=== PATIENT | female | born 1945 | race Caucasian/White ===

== ENCOUNTER 2017-11-08 13:42 | Emergency (ER) | payer MEDICARE, OTHER ==
[~2017-11-08] VITALS: Ht 152.4 cm; Wt 60.0 kg
[~2017-11-08 13:42] MED LIST: AMOXICILLIN500 MG PO; ASPIRIN325 MG PO; FISH OI1; MULTI VIT PO; VITAMI16
[2017-11-08 14:46] LABS: HEMATOCRIT 40.5 % (37.0-47.0); HEMOGLOBIN 14.1 g/dl (12.0-16.0); IMMATURE GRANULOCYTES 0.3 % (0.0-5.0); MEAN CELL VOLUME 95.3 fL CALC (80.0-100.0); MEAN CORPUSCULAR HGB 33.2 pG CALC (26.0-32.0); MEAN CORPUSCULAR HGB CONC 34.8 g/L CALC (32.0-36.0); NEUT# 8.3 thou/uL (2.00-7.15); RED BLOOD COUNT 4.25 mill/uL (4.20-5.60); RED CELL DISTRI WIDTH 12.5 % (11.5-15.5)
[2017-11-08 14:47] LABS: URINE BLOOD DIPSTICK TRACE-INTACT (NEGATIVE); URINE GLUCOSE - DIPSTICK NEGATIVE (NEGATIVE); URINE KETONE TRACE mg/dL (NEGATIVE); URINE LEUK ESTERASE TRACE (NEGATIVE); URINE NITRITE - DIPSTICK NEGATIVE (Negative); URINE PROTEIN - DIPSTICK 30 mg/dL (NEG-TRACE); URINE UROBILINOGEN - DIPSTICK 0.2 E.U./dL (0.2)
[2017-11-08 14:51] LABS: URINE BILIRUBIN - DIPSTICK NEGATIVE (NEGATIVE); URINE CLARITY CLEAR; URINE COLOR DK. YELLOW
[2017-11-08 15:00] LABS: URINE SQUAMOUS EPITHELIAL CELL FEW EPI/hpf (0-FEW)
[2017-11-08 15:02] LABS: ALBUMIN 3.9 g/dL (3.2-5.0); ALKALINE PHOSPHATASE 93 u/l (38-126); ANION GAP 14 (6-22 (CALC)); BILIRUBIN, TOTAL 1.3 mg/dL (0.0-1.4); BUN 17 mg/dL (8-23); BUN/CREATININE RATIO 24 (12-20 (CALC)); CARBON DIOXIDE 22 mmol/l (22-30); CHLORIDE 101 mmol/l (95-108); CREATININE 0.7 mg/dL (0.5-1.0); GFR > 60 ML/MIN (>=60 (CALC)); GFR FOR AFR.AMER. > 60 ML/MIN (>=60 (CALC)); LIPASE 48 u/l (23-300); POTASSIUM 3.9 mmol/l (3.5-5.1); SGOT/AST 20 u/l (9-36); SGPT/ALT 25 u/l (11-66); SODIUM 133 mmol/l (137-146); TOTAL PROTEIN 7.1 g/dL (6.3-8.2)
[2017-11-08 16:10] VITALS: BP 146/84
== END 2017-11-08 16:10 | disposition home or self-care (01) ==
LOC: ED 13:42
PROVIDERS: Family Medicine
DX: R10.13 Epigastric pain (principal); I48.91 Unspecified atrial fibrillation
CPT/HCPCS: Q9967

== ENCOUNTER → 2018-01-13 | Outpatient (REF) | payer MEDICARE, OTHER ==
[2018-01-13 09:17] LABS: HEMATOCRIT 41.7 % (37.0-47.0); HEMOGLOBIN 13.9 g/dl (12.0-16.0); IMMATURE GRANULOCYTES 0.3 % (0.0-5.0); MEAN CELL VOLUME 98.3 fL CALC (80.0-100.0); MEAN CORPUSCULAR HGB 32.8 pG CALC (26.0-32.0); MEAN CORPUSCULAR HGB CONC 33.3 g/L CALC (32.0-36.0); NEUT# 4.25 thou/uL (2.00-7.15); RED BLOOD COUNT 4.24 mill/uL (4.20-5.60); RED CELL DISTRI WIDTH 12.9 % (11.5-15.5)
[2018-01-13 09:19] LABS: ALBUMIN 4.2 g/dL (3.2-5.0); ALKALINE PHOSPHATASE 81 u/l (38-126); BILIRUBIN, TOTAL 0.5 mg/dL (0.0-1.4); BUN 13 mg/dL (8-23); BUN/CREATININE RATIO 19 (12-20 (CALC)); CALCULATED LDLCHOLESTEROL 92 mg/dL (62-129 (CALC)); CARBON DIOXIDE 26 mmol/l (22-30); CHLORIDE 107 mmol/l (95-108); CHOLESTEROL HDL RATIO 3.3 (<4.4 (CALC)); CREATININE 0.7 mg/dL (0.5-1.0); GFR > 60 ML/MIN (>=60 (CALC)); GFR FOR AFR.AMER. > 60 ML/MIN (>=60 (CALC)); HDL CHOLESTEROL 51 mg/dL (>=40); POTASSIUM 4.3 mmol/l (3.5-5.1); SGOT/AST 27 u/l (9-36); TOTAL CHOLESTEROL 170 mg/dl (0-199); TOTAL PROTEIN 7.4 g/dL (6.3-8.2); TOTAL TRIGLYCERIDES 138 mg/dl (30-149); VLDL CHOLESTROL 28 mg/dl (0-48 (CALC))
[2018-01-13 09:20] LABS: ANION GAP 12 (6-22 (CALC)); SODIUM 141 mmol/l (137-146)
[2018-01-13 09:47] LABS: TSH, 3RD GENERATION 2.25 uIU/mL (0.47 - 4.68)
== END | disposition home or self-care (01) ==
LOC: LAB 08:20
PROVIDERS: ATTEND Internal Medicine Geriatric Medicine
DX: I10 Essential (primary) hypertension (principal); R53.81 Other malaise

== ENCOUNTER 2018-04-30 00:59 | Emergency (ER) | payer MEDICARE, OTHER ==
[~2018-04-30] VITALS: Ht 152.4 cm; Wt 49.0 kg
[2018-04-30] MEDS ORDERED: TOPROL XL50 MG PO (01:17)
[2018-04-30] MEDS ORDERED: ASPIRINCHW 81MG PO (01:19)
[2018-04-30 01:28] VITALS: BP 168/91
[2018-05-01] MEDS ORDERED: AUGMENTIN875TAB PO (17:09)
== END 2018-04-30 01:38 | disposition home or self-care (01) ==
LOC: ED 00:59
PROC: 2Y41X5Z Packing of Nasal Region using Packing Material (ICD-10-PCS; principal; 2018-04-30)
DX: R04.0 Epistaxis (principal)

== ENCOUNTER 2018-05-01 16:28 | Emergency (ER) | payer MEDICARE, OTHER ==
[~2018-05-01] VITALS: Ht 152.4 cm; Wt 49.1 kg
[~2018-05-01 16:28] MED LIST changes: +ASPIRINCHW 81MG PO; +TOPROL XL50 MG PO
[2018-05-01] MEDS ORDERED: AUGMENTIN875TAB PO (17:09)
[2018-05-01 17:12] VITALS: BP 162/89
== END 2018-05-01 17:22 | disposition home or self-care (01) ==
LOC: ED 16:28
DX: Z48.00 Encounter for change or removal of nonsurgical wound dressing (principal); I10 Essential (primary) hypertension; I48.91 Unspecified atrial fibrillation; F17.210 Nicotine dependence, cigarettes, uncomplicated

== ENCOUNTER 2018-05-03 14:31 | Emergency (ER) | payer MEDICARE, OTHER ==
[~2018-05-03] VITALS: Ht 152.4 cm; Wt 49.8 kg
[~2018-05-03 14:31] MED LIST changes: +AUGMENTIN875TAB PO
[2018-05-03 15:12] VITALS: BP 189/99
== END 2018-05-03 15:19 | disposition home or self-care (01) ==
LOC: ED 14:31
DX: Z48.00 Encounter for change or removal of nonsurgical wound dressing (principal)

== ENCOUNTER 2021-06-13 16:30 | Observation (INO) | payer MEDICARE ==
[2021-06-13] VITALS (10 sets, daily range): BP systolic 149–200; BP diastolic 55–115
[~2021-06-13] VITALS: Ht 165.1 cm; Wt 50.0 kg
[~2021-06-13 16:30] MED LIST changes: +NORVASC2.5 M1 PO
--- NOTE | 2021-06-13 17:12 | NUR ---
PT ESCORTED VIA AMBULATORY TO ROOM 6.
[2021-06-13 17:14] LABS: IMMATURE GRANULOCYTES 0.3 % (0.0-5.0); MEAN CELL VOLUME 94.3 fL CALC (80.0-100.0); MEAN CORPUSCULAR HGB 31.1 pG CALC (26.0-32.0); MEAN CORPUSCULAR HGB CONC 32.9 g/dL CAL (32.0-36.0); NEUT# 5.81 thou/uL (2.00-7.15); RED BLOOD COUNT 3.51 mill/uL (4.20-5.60); RED CELL DISTRI WIDTH 12.8 % (11.5-15.5)
[2021-06-13 17:17] LABS: HEMATOCRIT 33.1 % (37.0-47.0); HEMOGLOBIN 10.9 g/dl (12.0-16.0)
[2021-06-13] MEDS ORDERED: ELIQUIS5 MG PO (17:20)
[2021-06-13] MEDS ORDERED: AMOXICILLIN500 MG PO (17:21)
[2021-06-13 17:24] LABS: ALBUMIN 4.3 g/dL (3.2-5.0); ALKALINE PHOSPHATASE 108 u/l (38-126); ANION GAP 16 (6-22 (CALC)); BILIRUBIN, TOTAL 0.6 mg/dL (0.0-1.4); BUN 11 mg/dL (8-23); BUN/CREATININE RATIO 19 (12-20 (CALC)); CARBON DIOXIDE 22 mmol/l (22-30); CHLORIDE 100 mmol/l (95-108); CREATININE 0.6 mg/dL (0.5-1.0); GFR > 60 ML/MIN (>=60 (CALC)); GFR FOR AFR.AMER. > 60 ML/MIN (>=60 (CALC)); POTASSIUM 4.1 mmol/l (3.5-5.1); SGOT/AST 35 u/l (9-36); SODIUM 134 mmol/l (137-146); TOTAL PROTEIN 7.8 g/dL (6.3-8.2)
--- NOTE | 2021-06-13 18:38 | NUR ---
PT RESTING COMFORTABLY IN BED. COVID SWAB DONE, IV INSERTED FOR ADMISSION
--- NOTE | 2021-06-13 19:00 | NUR ---
CARE ASSUMED, PT AWARE OF PLANNED ADMISSION
--- NOTE | 2021-06-13 19:30 | NUR ---
PT RESTING AMBULATED TO BATHROOM AND BACK WITH STEADY AGIT NO S/S OF DISTRESS OR DISCOMFORT, AWARE OF PLANNED ADMISSION AND AWARE OF AWAITING BED ASWSIGNMENT
--- NOTE | 2021-06-13 19:54 | NUR ---
ATTEMPTED TO CALL REPORT AWAITING BED ASSIGNMENT.
--- NOTE | 2021-06-13 20:17 | NUR ---
REPORT CALLED TO [facility] ON MED SURG, [facility] ALL BELONGING SENT WITH PT
--- NOTE | 2021-06-13 20:18 | NUR ---
GOT REPORT FROM ER NURSE AND NOTIFIED THAT PT WILL BE ON MED SURG SOON.
--- NOTE | 2021-06-13 20:23 | NUR ---
PT ARRIVED TO MED SURG ACCOMPANIED BY ER STAFF VIA WHEELCHAIR.
--- NOTE | 2021-06-13 20:40 | NUR ---
PT IN BED; A&O X3. EVEN AND UNLABORED RESPIRATIONS; CLEAR LUNG SOUNDS UPON AUSCULTATION. TELEMETRY IN PLACE. ACTIVE BOWEL SOUNDS X4 QUADRANTS. IV SITE HEALTHY AND PATENT. PT ORIENTED TO ROOM; AND CALL LIGHT USE; PT SHOWED UNDERSTANDING. SKIN IS INTACT. NO DISTRESS NOTED. PT DENIES PAIN AT THE MOMENT. SAFETY PRECAUTIONS IN PLACE. CALL LIGHT WITHIN REACH.
--- NOTE | 2021-06-13 21:30 | NUR ---
ADMINISTERED SCHEDULE MEDICATIONS. PT DENIED ELIQUIS AND STATES SHE TAKES IT ONCE DAILY AND ADMITTED TAKING IT AROUND 1200 WHILE AT HOME. CALL LIGHT WITHIN REACH.
[2021-06-14 00:33] VITALS: BP 150/64
--- NOTE | 2021-06-14 00:44 | NUR ---
PT IN BED WATCHING TV. NO DISTRESS NOTED. PT DENIES PAIN AT THE MOMENT. PT REQUESTED ICE AND A SODA. SAFETY PRECAUTIONS IN PLACE. CALL LIGHT WITHIN REACH.
--- NOTE | 2021-06-14 04:35 | NUR ---
PT SLIGHTLY AWAKE. PT STATES SHE IS COLD; EXTRA BLANKET PROVIDED AND ADJUSTED THE ROOM'S THERMOSTAT. TELEMETRY AND SAFETY PRECAUTIONS IN PLACE. CALL LIGHT WITHIN REACH.
[2021-06-14 06:32] LABS: HEMATOCRIT 33.9 % (37.0-47.0); HEMOGLOBIN 11.1 g/dl (12.0-16.0); MEAN CELL VOLUME 94.4 fL CALC (80.0-100.0); MEAN CORPUSCULAR HGB 30.9 pG CALC (26.0-32.0); MEAN CORPUSCULAR HGB CONC 32.7 g/dL CAL (32.0-36.0); RED BLOOD COUNT 3.59 mill/uL (4.20-5.60); RED CELL DISTRI WIDTH 12.5 % (11.5-15.5)
[2021-06-14 06:58] LABS: ANION GAP 12 (6-22 (CALC)); BUN 14 mg/dL (8-23); BUN/CREATININE RATIO 19 (12-20 (CALC)); CHLORIDE 101 mmol/l (95-108); CREATININE 0.7 mg/dL (0.5-1.0); GFR > 60 ML/MIN (>=60 (CALC)); GFR FOR AFR.AMER. > 60 ML/MIN (>=60 (CALC)); MAGNESIUM 1.9 mg/dL (1.6-2.3); POTASSIUM 3.9 mmol/l (3.5-5.1); SODIUM 136 mmol/l (137-146)
[2021-06-14 07:00] LABS: CARBON DIOXIDE 27 mmol/l (22-30)
--- NOTE | 2021-06-14 07:15 | NUR ---
REPORT RECEIVED FROM ZACK VARGHESE. ASSUMED CARE OF PATIENT.
[2021-06-14 08:00] VITALS: BP 179/102
--- NOTE | 2021-06-14 08:00 | NUR ---
MORNING ASSESSMENT AND VITAL OBTAINED. NO S/SX OF DISTRESS OR DISCOMFORT OBSERVED. BED IN LOWEST POSITION WITH WHEELS LOCKED, SIDE RAILS UP X 2 AND CALL LIGHT WITHIN REACH, WILL CONTINUR TO MONITOR.
[2021-06-14 12:00] VITALS: BP 154/68
--- NOTE | 2021-06-14 13:30 | NUR ---
IV site discontinued, cath intact. No edema , no redness, voices no discomfort.
--- NOTE | 2021-06-14 13:37 | NUR ---
Discharge instructions given. Patient verbalizes understanding of same. Discharged in stable condition via Wheelchair to Home with family. All belongings sent with pt.
== END 2021-06-14 13:37 | disposition home or self-care (01) ==
LOC: ED 16:30 → ED-I 18:05 → ED 18:05 → ED-I 18:06 → ED 18:21 → MS2 18:22
PROVIDERS: Family Medicine; ADMIT Hospitalist; ATTEND Hospitalist
DX: R07.89 Other chest pain (principal); I48.91 Unspecified atrial fibrillation; I10 Essential (primary) hypertension; Z79.01 Long term (current) use of anticoagulants; Z20.822 Contact with and (suspected) exposure to COVID-19

== ENCOUNTER 2021-09-11 14:32 | Observation (INO) | payer MEDICARE ==
[2021-09-11] VITALS (14 sets, daily range): BP systolic 120–176; BP diastolic 63–105
[~2021-09-11] VITALS: Ht 165.1 cm; Wt 45.0 kg
[~2021-09-11 14:32] MED LIST changes: +ELIQUIS5 MG PO
[2021-09-11 15:25] LABS: IMMATURE GRANULOCYTES 0.5 % (0.0-5.0); MEAN CELL VOLUME 98.7 fL CALC (80.0-100.0); MEAN CORPUSCULAR HGB 31.9 pG CALC (26.0-32.0); MEAN CORPUSCULAR HGB CONC 32.3 g/dL CAL (32.0-36.0); NEUT# 1.76 thou/uL (2.00-7.15); RED BLOOD COUNT 2.26 mill/uL (4.20-5.60)
[2021-09-11 15:26] LABS: HEMATOCRIT 22.3 % (37.0-47.0); HEMOGLOBIN 7.2 g/dl (12.0-16.0)
[2021-09-11 15:43] LABS: ALBUMIN 3.7 g/dL (3.2-5.0); ALKALINE PHOSPHATASE 81 u/l (38-126); ANION GAP 11 (6-22 (CALC)); BILIRUBIN, TOTAL 0.4 mg/dL (0.0-1.4); BUN 10 mg/dL (8-23); BUN/CREATININE RATIO 19 (12-20 (CALC)); CARBON DIOXIDE 29 mmol/l (22-30); CHLORIDE 101 mmol/l (95-108); CREATININE 0.5 mg/dL (0.5-1.0); GFR FOR AFR.AMER. > 60 ML/MIN (>=60 (CALC)); GFR OTHER RACES > 60 ML/MIN (>=60 (CALC)); LIPASE 64 u/l (23-300); SGOT/AST 32 u/l (9-36); SODIUM 138 mmol/l (137-146); TOTAL PROTEIN 6.9 g/dL (6.3-8.2)
[2021-09-11 15:44] LABS: ACT PARTIAL THROMBO TIME 23.4 SECONDS (20.0-32.5); PROTHROMBIN TIME 10.7 SECONDS (9.0-12.5)
[2021-09-11 15:45] LABS: POTASSIUM 3.1 mmol/l (3.5-5.1)
[2021-09-12] VITALS (7 sets, daily range): BP systolic 153–184; BP diastolic 70–97
[2021-09-12 04:44] LABS: ANION GAP 14 (6-22 (CALC)); BUN 13 mg/dL (8-23); BUN/CREATININE RATIO 29 (12-20 (CALC)); CARBON DIOXIDE 25 mmol/l (22-30); CHLORIDE 104 mmol/l (95-108); CREATININE 0.5 mg/dL (0.5-1.0); GFR FOR AFR.AMER. > 60 ML/MIN (>=60 (CALC)); GFR OTHER RACES > 60 ML/MIN (>=60 (CALC)); POTASSIUM 3.6 mmol/l (3.5-5.1); SODIUM 140 mmol/l (137-146)
[2021-09-12 05:01] LABS: HEMOGLOBIN 8.6 g/dl (12.0-16.0); MEAN CELL VOLUME 94.9 fL CALC (80.0-100.0); MEAN CORPUSCULAR HGB 31.4 pG CALC (26.0-32.0); MEAN CORPUSCULAR HGB CONC 33.1 g/dL CAL (32.0-36.0); RED BLOOD COUNT 2.74 mill/uL (4.20-5.60); RED CELL DISTRI WIDTH 18.4 % (11.5-15.5)
[2021-09-12] MEDS ORDERED: FAMOTIDINE20 M1 PO (07:26)
[2021-09-12] MEDS ORDERED: DIPHENHYDRAM25 M4 PO (07:26)
[2021-09-12] MEDS ORDERED: PREDNISONE20 MG PO (10:51)
[2021-09-12] MEDS ORDERED: ZITHROMAX250 MG PO (10:52)
== END 2021-09-12 14:36 | disposition home or self-care (01) ==
LOC: ED 14:32 → ED-I 17:00 → ED 17:31 → MS2 17:32
PROVIDERS: ADMIT Internal Medicine; ATTEND Internal Medicine
PROC: 30233N1 Transfusion of Nonautologous Red Blood Cells into Peripheral Vein, Percutaneous Approach (ICD-10-PCS; principal; 2021-09-11)
DX: R21 Rash and other nonspecific skin eruption (principal); R60.9 Edema, unspecified; D64.9 Anemia, unspecified; J90 Pleural effusion, not elsewhere classified; J18.9 Pneumonia, unspecified organism; J44.0 Chronic obstructive pulmonary disease with (acute) lower respiratory infection; I10 Essential (primary) hypertension; C34.90 Malignant neoplasm of unspecified part of unspecified bronchus or lung; I48.91 Unspecified atrial fibrillation; F17.290 Nicotine dependence, other tobacco product, uncomplicated; Z79.899 Other long term (current) drug therapy; Z79.01 Long term (current) use of anticoagulants; Z20.822 Contact with and (suspected) exposure to COVID-19
CPT/HCPCS: G0378; P9016; Q9967

== ENCOUNTER 2021-09-23 19:16 | Observation (INO) | payer MEDICARE ==
[~2021-09-23] VITALS: Ht 165.1 cm; Wt 43.0 kg
[2021-09-23] VITALS (10 sets, daily range): BP systolic 132–168; BP diastolic 56–97
[~2021-09-23 19:16] MED LIST changes: +DIPHENHYDRAM25 M4 PO; +FAMOTIDINE20 M1 PO; +PREDNISONE20 MG PO; +ZITHROMAX250 MG PO
[2021-09-23 20:10] LABS: HEMATOCRIT 22.9 % (37.0-47.0); HEMOGLOBIN 7.6 g/dl (12.0-16.0); IMMATURE GRANULOCYTES 0.6 % (0.0-5.0); MEAN CELL VOLUME 93.9 fL CALC (80.0-100.0); MEAN CORPUSCULAR HGB 31.1 pG CALC (26.0-32.0); MEAN CORPUSCULAR HGB CONC 33.2 g/dL CAL (32.0-36.0); NEUT# 1.05 thou/uL (2.00-7.15); RED BLOOD COUNT 2.44 mill/uL (4.20-5.60); RED CELL DISTRI WIDTH 18.1 % (11.5-15.5)
[2021-09-23 20:22] LABS: ACT PARTIAL THROMBO TIME 29.1 SECONDS (20.0-32.5); PROTHROMBIN TIME 13.1 SECONDS (9.0-12.5)
[2021-09-23 20:24] LABS: INTERNATIONAL NORMALIZED RATIO 1.3 RATIO (0.7-1.3)
[2021-09-23 20:25] LABS: ALBUMIN 3.5 g/dL (3.2-5.0); ALKALINE PHOSPHATASE 72 u/l (38-126); BUN 9 mg/dL (8-23); BUN/CREATININE RATIO 14 (12-20 (CALC)); CARBON DIOXIDE 26 mmol/l (22-30); CHLORIDE 93 mmol/l (95-108); CPK 48 u/l (30-165); CREATININE 0.7 mg/dL (0.5-1.0); GFR FOR AFR.AMER. > 60 ML/MIN (>=60 (CALC)); GFR OTHER RACES > 60 ML/MIN (>=60 (CALC)); MAGNESIUM 1.6 mg/dL (1.6-2.3); SGOT/AST 41 u/l (9-36); TOTAL PROTEIN 6.7 g/dL (6.3-8.2)
[2021-09-23 20:26] LABS: ANION GAP 13 (6-22 (CALC)); BILIRUBIN, TOTAL 1.3 mg/dL (0.0-1.4); POTASSIUM 2.8 mmol/l (3.5-5.1); SODIUM 129 mmol/l (137-146)
[2021-09-23 20:37] LABS: MYOGLOBIN 39 ng/mL (0 - 62)
[2021-09-23 21:27] LABS: TSH, 3RD GENERATION < 0.02 uIU/mL (0.47 - 4.68)
[2021-09-23 23:32] LABS: URINE BILIRUBIN - DIPSTICK NEGATIVE (NEGATIVE); URINE BLOOD DIPSTICK TRACE-INTACT (NEGATIVE); URINE COLOR YELLOW; URINE GLUCOSE - DIPSTICK NEGATIVE (NEGATIVE); URINE KETONE NEGATIVE (NEGATIVE); URINE LEUK ESTERASE NEGATIVE (NEGATIVE); URINE PROTEIN - DIPSTICK NEGATIVE (NEG-TRACE); URINE UROBILINOGEN - DIPSTICK 0.2 E.U./dL (0.2)
[2021-09-23 23:34] LABS: URINE NITRITE - DIPSTICK NEGATIVE (Negative)
[2021-09-24] VITALS (14 sets, daily range): BP systolic 128–167; BP diastolic 61–81
[2021-09-24 09:43] LABS: IMMATURE GRANULOCYTES 0.9 % (0.0-5.0); MEAN CELL VOLUME 91.2 fL CALC (80.0-100.0); NEUT# 1.73 thou/uL (2.00-7.15); RED BLOOD COUNT 3.52 mill/uL (4.20-5.60)
[2021-09-24 09:47] LABS: HEMATOCRIT 32.1 % (37.0-47.0); HEMOGLOBIN 10.9 g/dl (12.0-16.0)
[2021-09-24 10:00] LABS: ANION GAP 9 (6-22 (CALC)); BUN 9 mg/dL (8-23); BUN/CREATININE RATIO 13 (12-20 (CALC)); CARBON DIOXIDE 31 mmol/l (22-30); CHLORIDE 96 mmol/l (95-108); CREATININE 0.7 mg/dL (0.5-1.0); GFR FOR AFR.AMER. > 60 ML/MIN (>=60 (CALC)); GFR OTHER RACES > 60 ML/MIN (>=60 (CALC)); POTASSIUM 2.5 mmol/l (3.5-5.1); SODIUM 134 mmol/l (137-146)
[2021-09-24 13:09] LABS: TSH, 3RD GENERATION < 0.02 uIU/mL (0.47 - 4.68)
[2021-09-24 16:14] LABS: HEMATOCRIT 32.6 % (37.0-47.0); HEMOGLOBIN 11.2 g/dl (12.0-16.0)
[2021-09-25 05:27] VITALS: BP 150/68
[2021-09-25 05:51] LABS: ALBUMIN 3.3 g/dL (3.2-5.0); ALKALINE PHOSPHATASE 91 u/l (38-126); ANION GAP 8 (6-22 (CALC)); BILIRUBIN, TOTAL 1.4 mg/dL (0.0-1.4); BUN 6 mg/dL (8-23); BUN/CREATININE RATIO 11 (12-20 (CALC)); CARBON DIOXIDE 29 mmol/l (22-30); CHLORIDE 101 mmol/l (95-108); CREATININE 0.6 mg/dL (0.5-1.0); GFR FOR AFR.AMER. > 60 ML/MIN (>=60 (CALC)); GFR OTHER RACES > 60 ML/MIN (>=60 (CALC)); MAGNESIUM 1.4 mg/dL (1.6-2.3); POTASSIUM 3.4 mmol/l (3.5-5.1); SGOT/AST 47 u/l (9-36); SODIUM 135 mmol/l (137-146); TOTAL PROTEIN 6.4 g/dL (6.3-8.2)
[2021-09-25 05:55] LABS: HEMATOCRIT 33.8 % (37.0-47.0); HEMOGLOBIN 11.5 g/dl (12.0-16.0); IMMATURE GRANULOCYTES 0.4 % (0.0-5.0); MEAN CELL VOLUME 90.9 fL CALC (80.0-100.0); MEAN CORPUSCULAR HGB 30.9 pG CALC (26.0-32.0); NEUT# 1.71 thou/uL (2.00-7.15); RED BLOOD COUNT 3.72 mill/uL (4.20-5.60)
[2021-09-25 06:07] VITALS: BP 150/68
[2021-09-25 07:12] VITALS: BP 150/64
[2021-09-25 10:14] VITALS: BP 139/64
[2021-09-25] MEDS ORDERED: ZOFRAN4 MG/TAB PO (10:14)
[2021-09-25 10:15] VITALS: BP 139/64
== END 2021-09-25 14:29 | disposition home or self-care (01) ==
LOC: ED 19:16 → MS2 23:11
PROVIDERS: Family Medicine; Nurse Practitioner; ADMIT Internal Medicine; ATTEND Internal Medicine
PROC: 30233N1 Transfusion of Nonautologous Red Blood Cells into Peripheral Vein, Percutaneous Approach (ICD-10-PCS; principal; 2021-09-24)
PROC: 30233N1 Transfusion of Nonautologous Red Blood Cells into Peripheral Vein, Percutaneous Approach (ICD-10-PCS; 2021-09-24)
DX: D64.9 Anemia, unspecified (principal); E87.6 Hypokalemia; C34.90 Malignant neoplasm of unspecified part of unspecified bronchus or lung; I10 Essential (primary) hypertension; I48.91 Unspecified atrial fibrillation; J44.9 Chronic obstructive pulmonary disease, unspecified; R11.0 Nausea; T45.1X5A Adverse effect of antineoplastic and immunosuppressive drugs, initial encounter; E05.90 Thyrotoxicosis, unspecified without thyrotoxic crisis or storm; F17.290 Nicotine dependence, other tobacco product, uncomplicated; Z79.01 Long term (current) use of anticoagulants; Z92.3 Personal history of irradiation; Z79.899 Other long term (current) drug therapy; Z20.822 Contact with and (suspected) exposure to COVID-19
CPT/HCPCS: P9016; Q9967